=== PATIENT | female | born 1955 | race Caucasian/White ===

== ENCOUNTER 2022-02-28 22:36 | Emergency (ER) | payer MEDICARE, OTHER, SELFPAY ==
[2022-02-28 22:38] VITALS: BP 121/65; PULSE 81; RESP 17; O2SAT 98
[2022-02-28 22:40] VITALS: BP 141/74; PULSE 81; RESP 14; TEMP 36.4; O2SAT 96; BMI 35.5
--- NOTE | 2022-02-28 23:03 | RAD_ITS ---
INDICATION: pain EXAMINATION/TECHNIQUE: X-RAY - LEFT XR Tibia/Fibula 2 Views 2 VIEWS COMPARISON: None. FINDINGS: SOFT TISSUES: Dilated superficial veins suggesting throughout the lower leg. No radiopaque foreign body. BONES/JOINTS: No acute fracture or subluxation. Calcaneal enthesophytes present. Normal alignment. Medial compartment joint space narrowing and osteophyte formation. No sclerotic or destructive changes observed. RAD/Tibia & Fibula 2 Views IMPRESSION: Findings concerning for lower leg venous insufficiency. No acute osseous finding. Electronically Signed: Hipolito Lowe MD at 0:34 EST ,
--- NOTE | 2022-02-28 23:03 | EKG12_ITS ---
Test Reason : LOW EXTREM Blood Pressure : / mmHG Vent. Rate : 080 BPM Atrial Rate : 080 BPM P-R Int : 136 ms QRS Dur : 094 ms QT Int : 382 ms P-R-T Axes : 068 081 072 degrees QTc Int : 440 ms Normal sinus rhythm Normal ECG Confirmed by RAGHAV COELHO, JHON ([id number]), editor trade journal MIKAYLA TERRY ([id number]) on 03/03/2022 11:10:50 AM Referred By: Confirmed By:JHON AVILEZ MD
--- NOTE | 2022-02-28 23:03 | RAD_ITS ---
INDICATION: SOB EXAMINATION/TECHNIQUE: X-RAY - XR Chest 1 View COMPARISON: None. FINDINGS: LINES/DEVICES: None. LUNGS: No consolidation, edema or effusion. No pneumothorax. MEDIASTINUM AND CARDIOVASCULAR STRUCTURES: Cardiac silhouette not enlarged. BONES AND SOFT TISSUES: Unremarkable. Thoracolumbar fixation hardware present. RAD/Chest 1 View (Portable) IMPRESSION: No radiographic evidence of acute cardiopulmonary disease. Electronically Signed: Hipolito Lowe MD at 0:40 EST ,
--- NOTE | 2022-02-28 23:04 | EX.ED.DYSGE1 ---
HPI <Dr. Alo Serrano MD - Last Filed: 03/01/22 01:20> History of Present Illness Chief Complaint: Lower Extremity Injury Informant: patient and family Narrative Narrative: Patient presents with anterior tovar pain. She states she was just sitting at a [employer]. She had been sitting for about 10 minutes. She got a sudden electric shock or sharp pain in the left anterior tovar that went a little bit down into her foot. It is now just achy and sore. She states it seemed to be swollen but not so much anymore. She denies any injury to it. When specifically asked she also did have a little bit of dyspnea after this. She states she just felt like her breathing was tight. It is better now. She has never had heart disease. Her mom and dad have had rhythm issues and mitral valve prolapse but no documented heart vascular disease. She is a non-smoker. She used to have high blood pressure but has been off meds for a long time. She does have mild diabetes and cholesterol. She did have a blood clot after the delivery of her son and was on heparin for a while. Patient also drove about 3 hours from [place] to get here today for a hockey game. She was fine when she left. Pressing on the area in the anterior tovar or walking makes it worse and rest makes it better. There is no posterior calf pain. Patient does have a history of back issues. She has what sounds like stabilizing rods along her entire spine that were placed for scoliosis when she was young. But she states this is not like what she would think of is her typical sciatica pain. Her back is not hurting. PFSH <Dr. Alo Serrano MD - Last Filed: 03/01/22 01:20> [facility] Home Medications apixaban 5 mg tablet (Eliquis) 5 mg PO BID #74 tabs 03/01/22 [Rx Last Taken Unknown] Allergy/AdvReac Type Severity Reaction Status Date / Time cinnamon AdvReac Low blood Verified 02/28/22 22:39 pressure codeine AdvReac Low blood Verified 02/28/22 22:39 pressure morphine AdvReac Low blood Verified 02/28/22 22:39 pressure walnut AdvReac Low blood Verified 02/28/22 22:39 pressure Social History Smoking Status: Never smoker ROS <Dr. Alo Serrano MD - Last Filed: 03/01/22 01:20> ROS ED Constitutional Constitutional ED: Denies fever(s) or sweats ENT ENT ED: Denies ear pain, rhinorrhea or sore throat Cardiovascular Cardiovascular: Denies chest pain, palpitations or racing heartbeat Respiratory/Chest Respiratory/Chest: Reports dyspnea and other Details: She had a transient tight feeling and mild feeling of dyspnea after event. ; Denies cough Gastrointestinal Gastrointestinal: Denies nausea or vomiting Musculoskeletal Musculoskeletal: Reports arthralgias and other Details: See history of present illness. ; Denies back pain Integumentary Denies Abrasions or rash Neurologic Neurologic: Denies paresthesias or weakness Hematologic/Lymphatic Hematologic/Lymphatic: Denies easy bleeding or easy bruising Allergic/Immunologic Allergic/Immunologic ED: Denies urticaria EXAM <Dr. Alo Serrano MD - Last Filed: 03/01/22 01:20> Physical Exam Const Vital Signs: 02/28/22 22:40 02/28/22 22:38 02/28/22 23:46 Temperature 97.6 F L Temperature Source Temporal Pulse Rate 81 81 76 Respiratory Rate 14 17 21 H Blood Pressure 141/74 H 121/65 H 114/58 L Blood Pressure Mean 96 83 76 Pulse Ox 96 98 96 Oxygen Delivery Method Room Air Room Air Room Air 03/01/22 00:57 03/01/22 02:00 Temperature Temperature Source Pulse Rate 77 78 Respiratory Rate 18 16 Blood Pressure 120/50 L 104/59 L Blood Pressure Mean 73 74 Pulse Ox 95 91 Oxygen Delivery Method Room Air Room Air Positive well nourished and well developed General Appearance ED: well developed and NAD; Negative for cyanotic or diaphoretic HEENT Reports moist mucous membranes Eyes General Eye ED: Negative for scleral icterus Neck supple and no JVD Chest Wall inspection of chest normal Resp normal respiratory effort and clear to auscultation bilaterally Resp Narrative: No pain with deep breath Effort and Inspection: Negative for pain with movement Auscultation: Negative for rales, rhonchi or wheezes Cardio regular rate and regular rhythm Rate: Negative for bradycardia or tachycardic GI normal to inspection, nondistended, normoactive bowel sounds Back/Spine no CVA tenderness Extremity Extremity Narrative: There is some mild fullness to the anterior distal tovar. There is mild tenderness. There is no distended veins. No posterior calf tenderness. No tenderness along the deep venous system. No rash. No vesicles. Neuro oriented x3 and no sensory deficits noted Motor Exam: strength 5/5 throughout Psych mental status grossly normal Skin no rashes or lesions noted Lesions: lesion noted Rashes: rashes noted <Dr. Bebeto Daley DO - Last Filed: 03/01/22 03:07> Physical Exam Const Vital Signs: 02/28/22 22:40 02/28/22 22:38 02/28/22 23:46 Temperature 97.6 F L Temperature Source Temporal Pulse Rate 81 81 76 Respiratory Rate 14 17 21 H Blood Pressure 141/74 H 121/65 H 114/58 L Blood Pressure Mean 96 83 76 Pulse Ox 96 98 96 Oxygen Delivery Method Room Air Room Air Room Air 03/01/22 00:57 03/01/22 02:00 Temperature Temperature Source Pulse Rate 77 78 Respiratory Rate 18 16 Blood Pressure 120/50 L 104/59 L Blood Pressure Mean 73 74 Pulse Ox 95 91 Oxygen Delivery Method Room Air Room Air MDM <Dr. Alo Serrano MD - Last Filed: 03/01/22 01:20> [facility] MDM Narrative Medical decision making narrative: Chest x-ray and tib-fib show no acute process. CBC is normal. Electrolytes are overall normal. Troponin is negative. D-dimer was elevated. Because of her history complaints and the elevated D-dimer we did do a CTA. And results are pending. I think if this is okay she can go home. I explained that I am not able to get an ultrasound tonight. With pain only in the left anterior tovar I do not think this justifies anticoagulation even with a mild elevation of her D-dimer. She is leaving town tomorrow to go back to [place]. So an outpatient ultrasound I could not order and they are not in to do outpatient ultrasounds in the morning. But I explained that this should probably be done for completeness sake. She does note that the anterior tovar is somewhat sore with range of motion and with weightbearing. This is seeming more like a muscular type pain. Her other symptoms are resolved. Lab Data Attestation: I reviewed the patient's lab results. Labs: Laboratory Results - last 24 hr 02/28/22 02/28/22 02/28/22 23:25 23:25 23:25 WBC 6.5 RBC 3.93 L Hgb 12.1 Hct 37.3 MCV 94.9 MCH 30.8 MCHC 32.4 RDW Std Deviation 43.7 RDW Coeff of Sumit 12.5 Plt Count 291 MPV 9.5 Immature Gran % (Auto) 0.300 Neut % (Auto) 54.6 Lymph % (Auto) 34.1 [place] % (Auto) 7.4 Eos % (Auto) 3.1 Baso % (Auto) 0.5 Absolute Neuts (auto) 3.6 Absolute Lymphs (auto) 2.22 Nucleated RBC % 0 D-Dimer Quant (PE/DVT) 1.64 H* Sodium 140 Potassium 4.1 Chloride 109 H Carbon Dioxide 25.0 Anion Gap 6 BUN 23 H Creatinine 0.78 Estim Creat Clear Calc 43.18 Est GFR (MDRD) Af Amer 94 Est GFR (MDRD) Non-Af 78 BUN/Creatinine Ratio 29.4 H Glucose 113 H Calcium 9.1 Troponin I High Sens 5 Radiography Diagnostic Testing: Clinical Impression(s) from Imaging Studies Chest X-Ray 02/28/22 23:03 IMPRESSION: No radiographic evidence of acute cardiopulmonary disease. Electronically Signed: Hipolito Lowe MD at 0:40 EST , Tibia/Fibula X-Ray 02/28/22 23:03 IMPRESSION: Findings concerning for lower leg venous insufficiency. No acute osseous finding. Electronically Signed: Hipolito Lowe MD at 0:34 EST , Chest CTA 03/01/22 00:18 IMPRESSION: Findings concerning for focal subsegmental pulmonary embolus in the anterior right lower lobe. No evidence of right heart strain. 6 mm left pulmonary nodule. Six-month follow-up CT recommended if not stable on remote exams. Nodular thyroid enlargement with nodules up to 3.4 cm in size. Ultrasound characterization recommended when clinically able Electronically Signed: Hipolito Lowe MD at 1:55 EST , ADDENDUM: 03/01/22 0204 IMPRESSION: Findings concerning for focal subsegmental pulmonary embolus in the anterior right lower lobe. No evidence of right heart strain. 6 mm left pulmonary nodule. Six-month follow-up CT recommended if not stable on remote exams. Nodular thyroid enlargement with nodules up to 3.4 cm in size. Ultrasound characterization recommended when clinically able N.B. : The above Results were Read Back by Hipolito Lowe MD to Johnathan Navas RN, and understanding confirmed on 03/01/2022 01:57:16 (ET). Electronically Signed: Hipolito Lowe MD at 1:55 EST , Chest x-ray and tib-fib x-ray are not showing any acute process. EKG Initial EKG: Comments: EKG done for a transient episode of dyspnea read by me shows normal sinus rhythm with overall rate of 80. No ectopy. No acute ST elevation or depression. NJ interval, QRS duration and QTc are normal. There is no old for comparison. <Dr. Bebeto Daley, DO - Last Filed: 03/01/22 03:07> [facility] Lab Data Labs: Laboratory Results - last 24 hr 02/28/22 02/28/22 02/28/22 23:25 23:25 23:25 WBC 6.5 RBC 3.93 L Hgb 12.1 Hct 37.3 MCV 94.9 MCH 30.8 MCHC 32.4 RDW Std Deviation 43.7 RDW Coeff of Sumit 12.5 Plt Count 291 MPV 9.5 Immature Gran % (Auto) 0.300 Neut % (Auto) 54.6 Lymph % (Auto) 34.1 [place] % (Auto) 7.4 Eos % (Auto) 3.1 Baso % (Auto) 0.5 Absolute Neuts (auto) 3.6 Absolute Lymphs (auto) 2.22 Nucleated RBC % 0 D-Dimer Quant (PE/DVT) 1.64 H* Sodium 140 Potassium 4.1 Chloride 109 H Carbon Dioxide 25.0 Anion Gap 6 BUN 23 H Creatinine 0.78 Estim Creat Clear Calc 43.18 Est GFR (MDRD) Af Amer 94 Est GFR (MDRD) Non-Af 78 BUN/Creatinine Ratio 29.4 H Glucose 113 H Calcium 9.1 Troponin I High Sens 5 Radiography Diagnostic Testing: Clinical Impression(s) from Imaging Studies Chest X-Ray 02/28/22 23:03 IMPRESSION: No radiographic evidence of acute cardiopulmonary disease. Electronically Signed: Hipolito Lowe MD at 0:40 EST , Tibia/Fibula X-Ray 02/28/22 23:03 IMPRESSION: Findings concerning for lower leg venous insufficiency. No acute osseous finding. Electronically Signed: Hipolito Lowe MD at 0:34 EST , Chest CTA 03/01/22 00:18 IMPRESSION: Findings concerning for focal subsegmental pulmonary embolus in the anterior right lower lobe. No evidence of right heart strain. 6 mm left pulmonary nodule. Six-month follow-up CT recommended if not stable on remote exams. Nodular thyroid enlargement with nodules up to 3.4 cm in size. Ultrasound characterization recommended when clinically able Electronically Signed: Hipolito Lowe MD at 1:55 EST , ADDENDUM: 03/01/22 0204 IMPRESSION: Findings concerning for focal subsegmental pulmonary embolus in the anterior right lower lobe. No evidence of right heart strain. 6 mm left pulmonary nodule. Six-month follow-up CT recommended if not stable on remote exams. Nodular thyroid enlargement with nodules up to 3.4 cm in size. Ultrasound characterization recommended when clinically able N.B. : The above Results were Read Back by Hipolito Lowe MD to Johnathan Navas RN, and understanding confirmed on 03/01/2022 01:57:16 (ET). Electronically Signed: Hipolito Lowe MD at 1:55 EST Reading Location ID and State: [facility] / [place] Tel , Service support , Treatment and Re-Evaluation Narrative: Patient was endorsed to me by Dr. Saravia. I went and personally performed a history and physical examination of the patient. Her CT is positive for a right sided subsegmental pulmonary embolism. At this point the patient has no evidence of right heart strain tachypnea or tachycardia. I think it is reasonable to discharge her home. I am however a bit surprised by the diagnoses on the CT. We will be starting her on Eliquis. We talked about travel instructions and return instructions she will follow-up with primary care when she returns home and will provide her Be of her CT findings. Discharge Plan Triage Chief Complaint: Lower Extremity Injury ED Provider: Bebeto Daley Dx/Rx/DC Orders Clinical Impression: Pain in left tovar, History of dyspnea, Pulmonary embolism Instructions: Embolism Pulmonary Dc, ED Dyspnea, ED Muscle Strain, Extremity Prescriptions: New Eliquis 5 mg tablet 5 mg PO BID Qty: 74 0RF Rx Instructions: 10 mg twice a day for the first week. Then 5 mg twice a day. Primary Care Provider: Care Physician,No Primary Referrals: Care Physician,No Primary [Primary Care Provider] - Activity Restrictions/Additional Instructions: Please follow-up with your physician in [place] when you get back. For completeness, ultrasound of the left leg may be done. You may need further evaluation. Disposition Disposition: Home, Self Care
[2022-02-28 23:46] VITALS: BP 114/58; PULSE 76; RESP 21; O2SAT 96
[2022-02-28 23:47] LABS: Absolute Lymphocyte Count 2.22 X10^3/uL (0.83-4.51); Absolute Neutrophil Count 3.6 X10^3/uL (2.0-7.7); Basophil# 0.03 X10^3/uL; Basophil% 0.5 % (0-1); Eosinophils% 3.1 % (0-5); Hematocrit 37.3 % (37-47); Hemoglobin 12.1 g/dL (12.0-15.0); Lymphocyte # 2.22 X10^3/ul (0.83-4.51); Lymphocyte % 34.1 % (19-41); Mean Corp Hgb Conc 32.4 g/dL (32-36); Mean Corpuscular Hgb 30.8 pg (27.0-32.0); Mean Corpuscular Volume 94.9 fL (81-99); Mean Platelet Vol. 9.5 fl (6.2-12.0); Monocyte# 0.48 X10^3/uL; Monocyte% 7.4 % (0-10); NRBC Flagged by Analyzer 0 % (0-5); Neutrophil # 3.56 X10^3/uL (2.7-7.7); Neutrophil % 54.6 % (47-70); Platelet Count 291 K/mm3 (150-450); RBC Distribution Width CV 12.5 % (11.6-14.6); RBC Distribution Width SD 43.7 fl (35.1-43.9); Red Blood Count 3.93 M/mm3 (4.2-5.4); White Blood Count 6.5 K/mm3 (4.4-11.0)
[2022-03-01 00:09] LABS: D-Dimer Quantitative (DVT/PE) 1.64 FEU/ug/m (0.27-0.49)
[2022-03-01 00:10] LABS: Anion Gap 6 (5-15); BUN 23 mg/dL (7-18); BUN/Creat Ratio 29.4 RATIO (10-20); Calcium,Total 9.1 mg/dL (8.5-10.1); Chloride 109 mmol/L (98-107); Creatinine, Serum 0.78 mg/dL (0.55-1.02); EST Glomerular Filtration Rate 78 mL/min (>60); Est Glom Filt Rate - Afr Amer 94 mL/min (>60); Estimated Creatinine Clearance 43.18 ml/min; Glucose 113 mg/dL (74-106); Potassium 4.1 mmol/L (3.5-5.1); Sodium Level 140 mmol/L (136-145); Troponin-I HS 5 pg/mL (3.0-54.0)
--- NOTE | 2022-03-01 00:18 | CT_ITS ---
We are attempting to reach an attending provider to discuss findings. An addendum with communication details will be sent when the communication is complete. STUDY: CTA CHEST REASON FOR EXAM: Female, 66 years old. PE RADIATION DOSAGE (If Supplied By Facility): CTDIvol = ( 15.02 ) mGy, DLP = ( 513.98 ) mGycm TECHNIQUE: The examination was performed with the intravenous administration of 100 ML ISOVUE 370. Post-processing of the angiographic images was performed, with multiplanar reformation and 3D reconstruction. Individualized dose optimization techniques were used for this CT. COMPARISON: September 28, 2021. FINDINGS: Diffuse nodular thyroid enlargement, largest 3.4 cm posterior right thyroid Pulmonary outflow track is well opacified. Focal filling defect within subsegmental anterior right lower lobe, axial image 89, coronal image 174. Mild main pulmonary arterial enlargement relative to aorta arch. Normal heart and pericardium. No densely calcific coronary atherosclerosis. Normal RV LV ratio. Mild diffuse peribronchial thickening. No endobronchial lesion. Basilar subsegmental atelectasis. Anterior left lower lobe mildly spiculated 6 mm nodule axial image 115. Normal osseous structures. Thoracolumbar fixation hardware and scoliosis. Normal visualized upper abdomen. CT/CTA Chest W/WO Contrast IMPRESSION: Findings concerning for focal subsegmental pulmonary embolus in the anterior right lower lobe. No evidence of right heart strain. 6 mm left pulmonary nodule. Six-month follow-up CT recommended if not stable on remote exams. Nodular thyroid enlargement with nodules up to 3.4 cm in size. Ultrasound characterization recommended when clinically able Electronically Signed: Hipolito Lowe MD at 1:55 EST ,
[2022-03-01 00:57] VITALS: BP 120/50; PULSE 77; RESP 18; O2SAT 95
[2022-03-01 02:00] VITALS: BP 104/59; PULSE 78; RESP 16; O2SAT 91
[2022-03-01 03:03] VITALS: BP 104/59; PULSE 78; RESP 16; O2SAT 91
[2022-03-01] MEDS: APIXABAN 5 MG TABLET 10 MG PO (03:20)
== END 2022-03-01 03:25 | disposition home or self-care (01) ==
PROVIDERS: Emergency Medicine; Emergency Provider Emergency Medicine; Visit Provider Emergency Medicine
DX: I26.93 Single subsegmental thrombotic pulmonary embolism without acute cor pulmonale (principal); E11.9 Type 2 diabetes mellitus without complications; Z86.718 Personal history of other venous thrombosis and embolism
CPT/HCPCS: 71045; 71275; 73590; 80048; 84484; 85025; 85379; 93005; 99285; Q9967; A4216